=== PATIENT | male | born 1965 | race Caucasian/White ===

== ENCOUNTER 2025-03-09 14:37 | Outpatient (AMB) | payer OTHER, SELFPAY ==
--- OUTSIDE RECORDS SUMMARY | 2023-10-19 16:55 | XMS_ITS | Encounter Summary ---
Author Organization [facility] Address [address] [place] [address] Phone Care Team Providers Care Director Of Corporate Sales Name Role Phone Jairo Angeles MD Primary Care Provider + Encounter Details Date Type Department Care Team (Late st Contact Info) Description 10/19/2023 5:55 PM EDT Hospital Encounter [facility] [address] [place] [id number] Orlando Baxter, RN ADVANCED [address] [place] [address] [email or web address] Social History Tobacco Use Types Packs/Day Years Used Date Smoking Tobacco: Never Smokeless Tobacco: Never Alcohol Use Standard Drinks/Week Comments Yes 1 (1 standard drink = 0.6 oz pur e alcohol) Education Answer Date Recorded Are you interested in more education? Not on carlotta e 08/11/2022 Are you concerned about learning? Not on file 08/11/2022 No 08/11/2022 No 08/11/2022 Food Answer Date Recorded Within the past 6 months we worried whether our food would run out before we got money to buy more. Never True 02/18/2024 Within the past 6 months the food we bought just didn't last and we didn't have enough money to get more. Never True Residential Stability Answer Date Recor ded What is your housing situation today? I have donavon núñez 02/18/2024 How many times have you move d in the past 12 months? Zero (I did not move) 02/18/2024 Paying for Meds Answer Date Recorded Do you have trouble paying for medicines? No 02/18/2024 Paying Utility Bills Answer Date Record ed Do you have trouble paying your heating or elect ricity bill? No 02/18/2024 Transportation Answer Date Recorded Has the lack of transportati on kept you from medical appointments or from getting medications? No 02/18/2024 Digital Access Answer Date Recorded No 02/18/2024 Yes 02/18/2024 Do you have reliable internet access at home? Ye s 02/18/2024 Do you have a device (e.g., phone, tablet, computer) with a working camera? Yes 02/18/2024 Intimate Partner Violence Answer Date R ecorded Are you denied basic needs s uch as food, clothing, or medical care? No 02/18/2024 In the past 12 months have y ou been in a relationship with a person who hurts, threatens, or tries to control you? No 02/18/2024 Are you denied basic needs s uch as food, clothing, or medical care? No 02/18/2024 In the past 12 months have y ou been in a relationship with a person who hurts, threatens, or tries to control you? No 02/18/2024 Sex and Gender Information Value Date Recorded Sex Assigned at Male 04/13/2020 3:32 PM EST Legal Sex Male 8:22 AM EDT Gender Identity Male 04/13/2020 3:32 PM EST Sexual Orientation Straight 04/13/2020 3: 32 PM EST documented as of this encounter Functional Status * Calculated C-SSRS Risk Score (Lifetime/Recent) Answer Date of Assessment Author No Risk Indicated 02/18/2024 6:25 PM Dea Delvalle RN * [place] Suicide Severity Rating Scale (Screener/Recent Self-Report) Question Answer Date of Assessment Author 1. Wish to be (Past 1 Month) No 02/18/2024 6:25 PM Dea Finley RN 2. Non-Specific Active Suicidal Thoughts (Past 1 Month) No 02/18/2024 6:25 PM Dea Finley RN 6. Suicidal Behavior (Lifetime) No 02/18/2024 6:25 PM Dea Finley RN documented as of this encounter Plan of Treatment Not on file documented as of this encounter Procedures Procedure Name Priority Date/Time Associated Diagnosis Comments XR FOOT 3 OR MORE VIEWS (RIGHT) Urgent/patient waiting 10/19/2023 6:01 PM EDT Tendinitis of right foot documented in this encounter Results * XR FOOT 3 OR MORE VIEWS (RIGHT) (10/19/2023 6:01 PM EDT) Anatomical Region Laterality Modality Foot Right Computed Radiogr aphy 10/19/2023 6:28 PM EDT Impressions 10/19/2023 6:29 PM EDT No fracture or dislocation. Narrative 10/19/2023 6:29 PM EDT XR FOOT 3 OR MORE VIEWS (RIGHT) Referring clinician's provided indication for this examination in Epic: Pain; New onset of pain with walking and foot. Location is approximately around midline midfoot. No previous history of fractures or injury. No recent trauma to site COMPARISON: None FINDINGS: No displaced fracture. Small dorsal calcaneal enthesophyte. Normal alignment. Mild multifocal degenerative changes. No gross soft tissue swelling. Peripheral arterial disease. Procedure Note Sid Levin MD - 10/19/2023 XR FOOT 3 OR MORE VIEWS (RIGHT) Referring clinician's provided indication for this examination in Epic:Pain; New onset of pain with walking and foot. Location is approximatelyaround midline midfoot. No previous history of fractures or injury. Norecent trauma to site COMPARISON: None FINDINGS: No displaced fracture. Small dorsal calcaneal enthesophyte. Normalalignment. Mild multifocal degenerative changes. No gross soft tissueswelling. Peripheral arterial disease. IMPRESSION: No fracture or dislocation. Orlando Baxter RN ADVANCED IMG XR LOWER EXTREMITY Final Result documented in this encounter Visit Diagnoses Not on filedocumented in this encounter Care Teams Director Of Corporate Sales Relationship Specialty Start Date End Date Jairo Angeles MD [address] [place] [id number] PCP - General Internal Medicine 04/13/20 documented as of this encounter Additional Source Comments The information contained in this document represents components of the legal health record. It is not the complete legal health record.[facility]
[2025-03-09 15:06] VITALS: BP 140/92; PULSE 68; TEMP 36.1; O2SAT 95; BMI 27.9
--- NOTE | 2025-03-09 15:06 | MHC.PC.OV ---
Vital Signs 03/09/25 15:06 Height 5 ft 10 in Weight 194 lb 8 oz BMI 27.9 BP 140/92 H Blood Pressure Location Rt brachial Position Sitting Pulse 68 Pulse Source Pulse Oximeter Temp 97.0 F Temp Source Temporal Artery Scan Pulse Oximetry (%) 95 Oxygen Delivery Method Room Air Intake Visit Reasons: Establish Care/medication Allergies No Known Allergies Allergy (Verified 03/09/25 15:07) Medication List - Last Reconciled 03/09/25 by Ziggy Moreno MD aspirin 81 mg PO DAILY metoprolol succinate ER 25 mg PO DAILY rosuvastatin 40 mg PO DAILY tamsulosin 0.4 mg PO DAILY tirzepatide (Mounjaro) 0.25 mg subcut QWEEK valsartan 320 mg PO DAILY Tobacco use date assessed: 03/09/25 Dental Screening Dental Screen Date: 03/09/25 Did you have a dental visit in the last 12 months?: Yes Did you have a dental problem in the last 6 months where you did not have access to dental care?: No Was dental information given to patient?: Patient has dentist HPI Establish Care/medication HPI Details New Patient? ?? Prior PCP:? Dr Leija Last office visit/CPE:? 10 mos Acute issue(s):?Est Care ?? PMHx:? TIA, HTN, HLD, PreDM, BPH SurgHx:? L4-5 fusion x 3. R Hip replacement. FHx:? Siblings w/ MIs age 55. Mom: Heart attack in 80s. Dad: old age 89. SocHx: Works for [employer]. Nonsmoker, EtOH Infrequent 1 dr 1-x a month. No Drugs HPI Comments History of Present Illness Details Documentation assistance for Ziggy Moreno MD, was provided by Mahad Hernandez,? Inspector Of Dredging on 03/09/2025 at 3:24 PM EST. I, Dr. Moreno, have read, observed, and verified documentation. ?? PFSH Surgical History (Updated 03/09/25 @ 15:25 by Nayely Barragan CMA) History of lumbar laminectomy Hx of colonoscopy (~08/2024) History of right hip replacement Family History (Updated 03/09/25 @ 15:26 by Nayely Barragan CMA) Mother Hypertension Cardiovascular disease Maternal Grandmother Cardiovascular disease Social History (Updated 03/09/25 @ 15:09 by AMADOR Johnson Household Members: Spouse Housing: House Alcohol intake: current Alcohol intake frequency: a few times a month Patient Tobacco Use Status: Never used Tobacco e-Cigarette/Vaping Use: Never Used service: No Current occupational status: employed Current occupation: [employer] Cognitive needs: No Hearing needs: No Vision needs: Yes (Glasses) Questionnaire PHQ-9 Over the last 2 weeks, how often have you been bothered by any of the following problems? 1. Little interest or pleasure in doing things: not at all 2. Feeling down, depressed, or hopeless: not at all 3. Trouble falling or staying asleep, or sleeping too much: not at all 4. Feeling tired or having little energy: not at all 5. Poor appetite or overeating: not at all 6. Feeling bad about yourself - or that you are a failure or have let yourself or your family down: not at all 7. Trouble concentrating on things, such as reading the newspaper or watching television: not at all 8. Moving or speaking so slowly that other people could have noticed. Or the opposite - being so fidgety or restless that you have been moving around a lot more than usual: not at all 9. Thoughts that you would be better off or of hurting yourself in some way: not at all Total score: 0 Source: Developed by Drs. Carlos Alas, Zoe Ruff, Codey Humphrey and colleagues, with an educational cristopher from [employer]. Thrive Questionnaire I am a: Patient What is your living situation today?: I have a steady place to live Within the past 12 months, did the food you bought not last and you didn't have the money to get more?: Never true Within the past 12 months, did you worry whether your food would run out before you got money to buy more?: Never true Do you have trouble paying for medicines?: No Do you have trouble getting transportation to medical appointments?: No Do you have trouble paying your heating and electricity bill?: No Do you have trouble taking care of your child, family member or friend?: No Do you have trouble with day-to-day activities such as bathing, preparing meals, shopping, managing finances, etc.?: No Are you currently unemployed and looking for a job?: No Are you interested in more education?: No Please select the resources that you would like help with: None Currently or been in a relationship where the following occur: No concerns reported THRIVE Score: 0 AUDIT C Alcohol Use Questionnaire (AUDIT-C) 1. How often do you have a drink containing alcohol?: Monthly or less 2. How many drinks containing alcohol do you have on a typical day when you are drinking?: 1 or 2 3. How often do you have six or more drinks on one occasion?: Never Total Score: 1 CARLYN-7 AMB Questionnaire CARLYN-7 Feeling nervous, anxious, or on edge: 0 = Not at all Not being able to stop or control worryin = Not at all Worrying too much about different things: 0 = Not at all Trouble relaxin = Not at all Being so restless that it is hard to sit still: 0 = Not at all Becoming easily annoyed or irritable: 0 = Not at all Feeling afraid as if something awful might happen: 0 = Not at all Total CARLYN-7 score (0-4 normal; 5-9 mild; 10-14 moderate; 15-21 severe): 0 Source: Developed by Drs. Carlos Alas, Zoe Ruff, Codey Humphrey and colleagues, with an educational cristopher from [employer]. Review of Systems Const Denies chills, Denies fatigue, Denies fever(s), Denies headache(s) and Denies weakness ENT Denies dizziness and Denies headache(s) Card Denies chest pain, Denies lightheadedness, Denies dyspnea and Denies other (Palpitations) Resp Denies cough, Denies dyspnea, Denies wheezing and Denies other ( shortness of breath) Musc Denies numbness and Denies tingling Neuro Denies dizziness, Denies headache(s), Denies numbness, Denies tingling, Denies paresthesias and Denies weakness Psych Denies anxiety and Denies depression Endo Denies fatigue Aller/Immun Denies wheezing Physical exam (Primary Care) Vital Signs: Last Vital Signs Temp 97.0 F 03/09/25 15:06 Pulse 68 03/09/25 15:06 BP 140/92 H 03/09/25 15:06 Pulse Ox 95 03/09/25 15:06 Oxygen Delivery Method Room Air 03/09/25 15:06 BMI result Body Mass Index 27.9 Tobacco/Smoking Status: Tobacco use Status Tobacco use date assessed 03/09/25 03/09/25 15:08 Patient Tobacco Use Status Never used Tobacco 03/09/25 15:09 e-Cigarette/Vaping Use Never Used 03/09/25 15:08 PHQ-9: PHQ-9 Score PHQ-9: Total score 0 03/09/25 15:20 Currently or been in a relationship where the following occur: No concerns reported Const General: no acute distress and well developed Nutritional Appearance: well nourished Orientation/consciousness: patient oriented x3 HENMT Head: Yes normocephalic and Yes atraumatic Eyes General: appearance normal, both eyes and all related structures Pupils: Equal, round and reactive pupils present EOM: EOMs intact bilaterally Resp Effort & Inspection: normal respiratory effort Auscultation: clear to auscultation bilaterally Cardio Rate: regular rate Rhythm: regular rhythm Heart sounds: S1 normal heart sound present, S2 normal heart sound present, no gallops, no murmurs and no rubs Neuro General: patient oriented x3 and gait normal Cranial nerves: Yes Equal, round and reactive pupils present Psych Affect: normal affect Coding Level of Care Code New Pt Level 3 (86160) Diagnoses Hypertension I10 Hyperlipidemia E78.5 History of TIA (transient ischemic attack) Z86.73 BPH (benign prostatic hyperplasia) N40.0 Pre-diabetes R73.03 Laboratory exam ordered as part of routine general medical examination Z00.00 Assessment & Plan Assessment & Plan (1) Hypertension: Code(s): I10 - Essential (primary) hypertension Category: Medical Plan: Patient is on metoprolol and valsartan. Blood pressure mildly elevated today. Goal is less than 130/80 Continue current medications. Check blood pressures and let me know if they are running high at home If still elevated at next visit, will adjust medications Watch salt and sodium (2) Hyperlipidemia: Code(s): E78.5 - Hyperlipidemia, unspecified Category: Medical Plan: Patient is on rosuvastatin 40 mg daily and has a strong family history of [place] Rosuvastatin was recently started. Will request most recent set of labs. He will get labs recheck prior to next visit for comparison (3) History of TIA (transient ischemic attack): Code(s): Z86.73 - Personal history of transient ischemic attack (TIA), and cerebral infarction without residual deficits Category: Medical Plan: Blood pressure, lipids and blood sugar He is on rosuvastatin and aspirin Stable (4) BPH (benign prostatic hyperplasia): Code(s): N40.0 - Benign prostatic hyperplasia without lower urinary tract symptoms Category: Medical Plan: Followed by urology and he is on tamsulosin Stable Will check PSA level (5) Pre-diabetes: Code(s): R73.03 - Prediabetes Category: Medical Plan: Patient notes history of pre diabetes. He is on Mounjaro Has also losing weight on this Continue current medication (6) Laboratory exam ordered as part of routine general medical examination: Code(s): Z00.00 - Encounter for general adult medical examination without abnormal findings Category: Medical Plan: 60-year-old male presents as new patient. Check labs Orders: Orders Prostate Specific Antigen Scr Today Z12.5 - Encounter for screening for malignant neoplasm of prostate Lipid Panel Today Z00.00 - Encounter for general adult medical examination without abnormal findings Comprehensive [place]. Panel Fast Today Z00.00 - Encounter for general adult medical examination without abnormal findings Complete Blood Count Auto Diff Today Z00.00 - Encounter for general adult medical examination without abnormal findings Microalbumin, Random (w Creat) Today I10 - Essential (primary) hypertension UA CC w/rflx Micro + Cult Today Z00.00 - Encounter for general adult medical examination without abnormal findings TSH reflex Free T4 Today Z00.00 - Encounter for general adult medical examination without abnormal findings Hemoglobin A1c Today R73.01 - Impaired fasting glucose
--- OUTSIDE RECORDS SUMMARY | 2025-03-09 19:30 | XMS_ITS | Clinical Summary ---
Author Organization [facility] Address [address] [place] [address] Phone Care Team Providers Care Real Estate Marketing Coordinator Name Role Phone Jairo Angeles MD Primary Care Provider + Allergies Active Allergy Reactions Criticality Noted Date Comments Bee Pollen Swelling 01/06/2021 bees Medications tamsulosin (FLOMAX) 0.4 mg Cap Take 0.4 mg by mouth nightly at bedtime. 1 Active losartan (COZAAR) 100 MG tablet Take 100 mg by mouth daily. Active rosuvastatin (CRESTOR) 40 MG tablet Take 40 mg by mouth daily. 3 Active amLODIPine (NORVASC) 2.5 MG tablet Take 2.5 mg by mouth daily. Active ZEPBOUND 10 mg/0.5 mL subcutaneous pen Inject 10 mg under the skin once a week. 4 Active sildenafiL (VIAGRA) 100 mg tablet Take 50 mg by mouth as needed. 4 Active aspirin 81 MG EC tablet Take 1 tablet (81 mg total) by mouth daily. 4 Active acetaminophen (TYLENOL) 325 mg tablet Take 2 tablets (650 mg total) by mouth every 6 (six) hours as needed. 4 Active diazePAM (VALIUM) 5 MG tablet Take 0.5-1 tablets (2.5-5 mg total) by mouth every 8 (eight) hours as needed (muscle spasms). 10 tablet 4 Active polyethylene glycol (MIRALAX) 17 gram packet Take 17 g by mouth daily as needed for other (free text field) (severe constipation). 14 packet 4 Active oxyCODONE 5 MG immediate release tablet Take 1-2 tablets (5-10 mg total) by mouth every 4 (four) hours as needed (acute severe postsurgical pain). 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 None, Lumbar Spine MRI reviewed, T12 with ribs, 5 lumbarized vertebrae Allergies that may influence a procedure: None Medications that may influence a procedure: None PMHx and PSHx that may influence a procedure: @@@Hypertension (BP>210/110 results in cancelled case) ASA 2 - Patient with mild systemic disease with no functional limitations DIAGNOSTIC TESTING LABS: IMAGIN10/07/2019 - Lumbar Spine MRI - Images independently interpreted, agree with report. Salient report findings: Minimal degenerative anterolisthesis of L4 on L5. Minimal retrolisthesis of L1 on L2 and L2 on L3. The lumbar vertebral bodies are normal in height. No spondylolysis or marrow edema. The lumbar discs are desiccated. Mild multilevel loss of disc space height. Marginal osteophytes and facet arthrosis are noted. Mild congenital narrowing of the spinal canal due to shortened pedicles. The conus terminates at T12-L1. Mild fatty atrophy of the lower posterior paraspinal musculature. The visualized retroperitoneal structures are unremarkable. L1-L2: Mild concentric disc-osteophyte complex and facet arthrosis. Minimal central canal narrowing. Subtle right subarticular recess narrowing with minimal crowding of the traversing right L2 nerve roots. Mild foraminal narrowing. L2-L3: Facet arthrosis and mild Mild central canal narrowing without traversing nerve root impingement. Mild foraminal narrowing. L3-L4: Posterior disc-osteophyte complex, facet arthrosis, and ligamentum flavum infolding. Minimal central canal narrowing without traversing nerve root impingement. Mild right and mild-moderate left foraminal narrowing. L4-L5: Mild concentric disc-osteophyte complex, facet arthrosis, and ligamentum flavum infolding. Severe central canal stenosis. Bilateral subarticular recess narrowing with crowding of and compression of the traversing L5 nerve roots. Mild right and mild-moderate left foraminal narrowing. L5-S1: Mild concentric disc bulge. Subtle subarticular recess narrowing without traversing nerve root impingement. Mild right and minimal left foraminal narrowing. PRIOR TREATMENTS Physical Therapy: last in 2009 Medications tried: Ibuprofen-used to help, oral steroids-has helped in the past Procedures: Dr Valdes - [facility] 08/04/2014 TFESI RT L4, 5: 100% relief x one week. 10/02/2014 TFESI L4, 5: 80% relief for a few days 10/28/2014 TFESI RT L4, 5 - lateral flow noted Ramon 09/01/20 - Right L5-S1 ILESI - excellent medial and superior right dominant epidural flow - 95% relief at 3.5 week follow up 12/29/20 - Right L5-S1 ILESI - good superior (just below L4-5 disc level) and inferior flow, right dominant IMPRESSIONS & RECOMMENDATIONS Bilateral lower back pain with right greater than left posterior thigh, posterior calf, foot numbness. Especially worse with standing and walking, also provoked with prolonged sitting/driving. Suspect symptoms are likely due to severe central stenosis at the L4-5 level. Differentials for axial lower back pain include severe bilateral lumbar zygapophyseal joint arthropathy at the L4-5 and L5-S1 levels. - Discussed the pathophysiology, natural history and spectrum of treatment options. We reviewed differences in technique for interventional spine procedures. We reviewed the difference between a transforaminal epidural steroid injection as well as an interlaminar epidural steroid injection. - Reviewed the importance of regular physical activity and maintenance of ideal body weight in the management of spine pain. - Discussed red flag symptoms to watch out for including progressive weakness of the legs, loss of control of bowel or bladder function, and perirectal/saddle anesthesia. If any of these symptoms occur, the patient is to call the office. If unable to reach us, the patient is to go to the nearest emergency room. - We reviewed imaging together with Zoom teleconferencing via the screen sharing function to demonstrate likely locations of pain generators. We reviewed basic spine anatomy and biomechanics. - We discussed that spine injections can help to decrease pain and/or inflammation, but they do not change the physical structure of the spine. - We discussed the risks of spinal injections including bleeding, infection, increased pain, dysesthesias, nerve damage, paralysis, seizures, stroke and . We reviewed mitigating factors including usage of fluoroscopy, contrast, and having patients alert and awake to give us any feedback on increased discomfort. Patient understood these risks and I answered all questions. - All questions were answered. - Lumbar Spine MRI - completed and reviewed - Prior lumbar spine procedure notes and images reviewed - Patient was given a set of home exercises to try for lumbar spinal stenosis, he will continue with his home exercise program If lower back and leg symptoms return, recommend the following: - right L5-S1 interlaminar epidural steroid injection x1; follow up 2-4 weeks. To be performed at: [facility] [place] with Local Anesthetic If fails to progress, - Spine surgery consultation for open surgical procedure if surgical lesion identified - Pain medicine consultation if non-operative care chosen Raman diagnostic test images: TIA (transient ischemic attack) Overview (12/30/2020): possible TIA in 2008 with blurry vision; negative brain scans; no recurrent symptoms Peripheral edema Overview (12/30/2020): left ankle, chronic, unchanged, wears compression stocking Motion sickness Lumbar stenosis Loud snoring Overview (12/30/2020): with witnessed apnea by , no formal sleep study Hypertension Overview (12/30/2020): controlled on irbesartan Gastroesophageal reflux disease Overview (12/30/2020): well controlled on omeprazole BPH (benign prostatic hyperplasia) At risk for sleep apnea Overview (12/30/2020): loud snoring with witnessed apnea by Arthritis of right hip Immunizations Immunization Administration Dates Next Due INFLUENZA, SPLIT VIRUS, TRIVALENT PF 02/19/2024 Influenza Quadrivalent Prese rvative Free IM 02/03/2022,01/07/2021(Deferred: Patient Refused) Family History Medical History Relation Comments Heart attack Brother 1 age 40s Heart disease Brother 1 Heart attack Brother 2 late 50's Heart disease Brother 2 Lung cancer Father Heart attack Maternal Uncle Heart attack Mother Heart disease Mother Anesthesia problems Neg Hx Diabetes Neg Hx Malig Hyperthermia Neg Hx Pseudochol deficiency Neg Hx Stroke Neg Hx Relation Status Comments Brother 1 Brother 2 Father Maternal Uncle [place] Mother (Age 89) [place] Social History Tobacco Use Types Packs/Day Years Used Date Smoking Tobacco: Never Smokeless Tobacco: Never Tobacco Cessation:Counseling Given: Not Answered Alcohol Use Standard Drinks/Week Comments Yes 1 [...] Orientation Straight 04/13/2020 3: 32 PM EST Last Filed Vital Signs Vital Sign Reading Time Taken Comments Blood Pressure 128/72 08/11/2024 11:15 AM EDT Pulse 89 08/11/2024 11:15 AM EDT Temperature 36.7 C (98 F) 03/19/2024 10:28 AM EST Respiratory Rate 16 02/19/2024 7:36 AM EST Oxygen Saturation 99% 08/11/2024 11:15 AM EDT Inhaled Oxygen Concentration - - Weight 88.6 kg (195 lb 4.8 oz) 08/11/2024 11:15 AM EDT Height 177.8 cm (5' 10 ) 03/19/2024 10:28 AM EST Body Mass Index 28.02 03/19/2024 10:28 AM EST Plan of Treatment Health Maintenance Due Date Last Done Comments Adult Td,Tdap Booster 1964 DEPRESSION SCREENING 1976 HEPATITIS C SCREENING 02/09/1982 HIV ONE-TIME SCREENING (18-65 YEARS) 02/09/1982 COLOGUARD 02/09/2009 COLONOSCOPY 02/09/2009 COLORECTAL CANCER SCREENING 02/09/2009 FIT TEST 02/09/2009 FOBT 02/09/2009 SIGMOIDOSCOPY 02/09/2009 VIRTUAL COLONOSCOPY 02/09/2009 PNEUMOCOCCAL VACCINES (50+ years) (1 of 1 - PCV) 02/09/2014 ZOSTER VACCINES (2 of 2) 08/19/2022 06/24/2022 INFLUENZA VACCINE (#1) 2024 , 02/03/2022, 01/27/2021 COVID-19 VACCINE (2024- season) 2024 04/01/2021, 05/28/2020, 04/30/2020 BLOOD PRESSURE 2025 08/11/2024 CREATININE LEVEL 02/18/2025 02/19/2024, 07/2023, 02/13/2024, Additional history exists POTASSIUM LEVEL 02/18/2025 02/19/2024, 07/2023, 02/13/2024, Additional history exists SCREENING FOR DIABETES 02/18/2027 02/19/2024 RSV VACCINE (1 - 1-dose 75+ series) 02/09/2039 SMOKING STATUS SCREENING (Once After 26 Yrs) Completed 08/11/2024 HEPATITIS A VACCINES Aged Out No long er eligible based on patient's age to complete this topic HIB VACCINES Aged Out No longer eligi ble based on patient's age to complete this topic MENINGOCOCCAL VACCINES (ACWY) Aged Out No longer eligible based on patient's age to complete this topic MENINGOCOCCAL VACCINES (B) Aged Out N o longer eligible based on patient's age to complete this topic Medical Devices Implanted Type Area Sheet Sorter Device Identifier Shelf Expiration Date Model / Serial / Lot Hip Head 36mm Plus 1.5 Femoral Articul/Manuel [place] [employer] 03/29 Tapered - [id number] Implanted:Qty: 1 on 01/06/2021 by Jose Ramon Correa MBChB at [facility] Right: Hip [facility] [employer] 10/13/2025 [id number] / / [id number] Plug Hip 48 66mm Implant Liner Hole Eliminator Thrded Positive Stop [place] 16b - [id number] Implanted:Qty: 1 on 01/06/2021 by Jose Ramon Correa MBChB at [facility] Right: Hip [facility] [employer] 10/13/2030 [id number] / / [id number] Acetabular Liner 36x56 Plus 4mm 10deg Lipped Polyethelene Bearing Altrx Implant 10 - [id number] Implanted:Qty: 1 on 01/06/2021 by Jose Ramon Correa MBC at [facility] STANDARD Right: Hip [facility] [employer] 06/13/2025 [id number] / / [id number] Hip Stem 140mm Sz 14 Femoral Corail Hydroxyapatite High Offset Lateralised - [id number] Implanted:Qty: 1 on 01/06/2021 by Jose Ramon Correa MBChB at [facility] STANDARD Right: Hip [facility] [employer] 07/15/2023 [id number] / / [id number] Dental Implant Acetabular Augment 10x54 56mm Gription Tf Revision Titanium Truebond Locking Slot 21 - [id number] Implanted:Qty: 1 on 01/06/2021 by Jose Ramon Correa MBChB at [facility] Right: Hip [facility] [employer] 11/13/2030 [id number] / / [id number] Allograft Bone 5cc Osteoamp Select Flowable - [id number] Implanted:Qty: 1 on 01/31/2022 by Moshe Marlow MD at [facility] N/A: Spine Lumbar [employer] 09/22/2024 OAMI- [id number] / Tlif Hive-T Interbody Spacer 10w, 30l, 11h Implanted:Qty: 1 on 01/31/2022 by Moshe Marlow MD at [facility] N/A: Spine Lumbar 05/01/2023 [id number] / / [id number] Screw Spine 7x40mm Reline O 2s Polyaxial - [id number] Implanted:Qty: 2 on 01/31/2022 by Moshe Marlow MD at [facility] N/A: Spine Lumbar [employer] [id number] / / Screw Spine 5.5mm Reline Locking - [id number] Implanted:Qty: 4 on 01/31/2022 by Moshe Marlow MD at [facility] N/A: Spine Lumbar [employer] [id number] / / Spine Shahid 35x5.5mm Reline Titanium Lordotic - [id number] Implanted:Qty: 1 on 01/31/2022 by Moshe Marlow MD at [facility] N/A: Spine Lumbar [employer] [id number] / / Screw Spine 7x45mm Reline O 2s Polyaxial - [id number] Implanted:Qty: 2 on 01/31/2022 by Moshe Marlow MD at [facility] N/A: Spine Lumbar [employer] [id number] / / Procedures Procedure Name Priority Date/Time Associated Diagnosis Comments BASIC METABOLIC PANEL (BMP) Routine 02/19/2024 7:56 AM EST from Last 3 Months or Most Recently Relevant to Health Maintenance Results * Basic metabolic panel (02/19/2024 7:56 AM EST) SODIUM 141 136 - 145 mmol/L [facility] POTASSIUM 3.5 3.4 - 5.1 mmol/L [facility] CHLORIDE 103 98 - 107 mmol/L [facility] CO2 25 22 - 31 mmol/L [facility] BUN 15 6 - 23 mg/dL [facility] CREATININE 0.96 0.50 - 1.20 mg/dL [facility] GLUCOSE 99 70 - 100 mg/dL [facility] CALCIUM 9.2 8.8 - 10.7 mg/dL [facility] EGFR 90 >59 mL/min/1.7 3m2 [facility] Comment:Estimated glomerular filtration rate calculated using the CKD-EPI refit equation. ANION GAP 13 7 - 17 mmol/L [facility] Blood 02/19/2024 7:56 AM EST 02/19/2024 9:13 AM EST us Ben Barrios MD LAB BLOOD BKR ORDERABLES Final Result [facility] [address] [place] [id number] from Last 3 Months or Most Recently Relevant to Health Maintenance Insurance [employer] PLUS PPO [employer] PLUS PPO [employer] PLUS PPO [employer] PLUS PPO Advance Directives For more information, please contact: [phone] (9AM - 5PM [facility], Sunday-Sunday) Documents on File Type Date Recorded Patient Valve Tester Expl anation Healthcare Proxy 02/21/2024 6:00 PM * Full Code (Latest Code Status on File) Date Activated Date Inactivated Comments 02/18/2024 5:08 PM Question Answer Comments Code Status Confirmed With: Patient Code Status Communicated To: Sub-specialist (merrill reichfy below) * Full Code Date Activated Date Inactivated Comments 01/06/2021 2:39 PM 02/18/2024 5:08 PM Question Answer Comments Code Status Confirmed With: Patient Care Teams Real Estate Marketing Coordinator Relationship Specialty Start Date End Date Jairo Angeles MD [address] [place] [id number] PCP - General Internal Medicine 04/13/20 Additional Source Comments The information contained in this document represents components of the legal health record. It is not the complete legal health record.[facility]
--- OUTSIDE RECORDS SUMMARY | 2025-03-09 19:30 | XMS_ITS | Encounter Summary ---
Author Organization [employer] [facility] Address [address] [place] [address] Phone Care Team Providers Care Chapter Relations Administrator Name Role Phone Jairo Angeles MD Primary Care Provider + Encounter Details Date Type Department Care Team ([facility] st Contact Info) Description 06/13/2021 Procedure Pass [facility] [address] [place] [address] Social History Tobacco Use Types Packs/Day Years Used Date Smoking Tobacco: Never Smokeless Tobacco: Never Alcohol Use Standard Drinks/Week Comments Yes 1 (1 standard drink = 0.6 oz pur e alcohol) Sex and Gender Information Value Date Recorded Sex Assigned at Male 04/13/2020 3:32 PM EST Legal Sex Male 8:22 AM EDT Gender Identity Male 04/13/2020 3:32 PM EST Sexual Orientation Straight 04/13/2020 3: 32 PM EST documented as of this encounter Plan of Treatment Not on file documented as of this encounter Visit Diagnoses Not on filedocumented in this encounter Care Teams Chapter Relations Administrator Relationship Specialty Start Date End Date Jairo Angeles MD [address] [place] [id number] PCP - General Internal Medicine 04/13/20 documented as of this encounter Additional Source Comments The information contained in this document represents components of the legal health record. It is not the complete legal health record.[facility]
--- OUTSIDE RECORDS SUMMARY | 2025-03-09 19:30 | XMS_ITS | Clinical Summary ---
Author Organization [facility] Address [address] [place] [address] Phone Care Team Providers Care Food Beverage Supervisor Name Role Phone Jairo Angeles MD Primary Care Provider [phone] Allergies Active Allergy Reactions Criticality Noted Date Comments Bee Venom Protein (Honey Bee) 2024 Medications Zepbound 5 mg/0.5 mL injection ADMINISTER 5 MG UNDER THE SKIN EVERY WEEK. ROTATE INJECTION SITES 5 Active rosuvastatin (CRESTOR) 40 mg tablet Take 1 tablet (40 mg total) by mouth 1 (one) time each day. Active losartan (COZAAR) 100 mg tablet TAKE 1 TABLET BY MOUTH DAILY. REPLACES IRBESARTAN Active aspirin 81 mg capsule Take 81 mg by mouth. 4 Active amLODIPine (NORVASC) 2.5 mg tablet Take 1 tablet (2.5 mg total) by mouth 1 (one) time each day. Active polyethylene glycol (Golytely) 236-22.74-6.74 -5.86 gram solution Take 4L by mouth once for one dose. May substitue any PEG. Starting at 6PM the night before your procedure drink 1 8oz glasses at your own pace until you complete half of the gallon. Finish 2nd half of the gallon 5 hours before your procedure. 4000 mL 5 Active bisacodyL (DULCOLAX) 5 mg EC tablet Take 2 tablets by mouth right before beginning bowel prep. See instructions provided by the office 2 tablet 5 Active omeprazole (PriLOSEC) [address] capsuleIndicati ons:Gastroesoph ageal reflux disease without esophagitis,Bar rett's esophagus without dysplasia Take 1 capsule (20 mg total) by mouth 2 (two) times a day. Do not crush or chew. 60 each 11 5 08/22/19 26 Active Active Problems Problem Noted Date Diagnosed Date Anemia 07/17/2024 Assessment & Plan (07/17/2024 5:58 PM EDT): Unspecified anemia, will reorder labs to further evaluate. Recommend add-on EGD for GI workup especially given epigastric pain and heartburn. Orders: Iron and TIBC; Future Ferritin; Future CBC and differential; Future Vitamin B12 and folate; Future Coronary artery calcification 07/17/2024 Hypercholesterolemia 07/17/2024 Hypertension 07/17/2024 Overview (07/17/2024): controlled on irbesartan Osteoarthritis of hip 07/17/2024 PAD (peripheral artery disease) ([facility] V24) TIA (transient ischemic attack) 07/17/2024 Overview (07/17/2024): possible TIA in 2008 with blurry vision; negative brain scans; no recurrent symptoms Varicose veins of legs 07/17/2024 Lumbar stenosis 06/13/2021 S/P hip replacement, right 01/06/2021 Surgical History Surgery Date Site/Laterality Comments BACK SURGERY HERNIA REPAIR TOTAL HIP ARTHROPLASTY COLONOSCOPY at 49 per patient, unremarkable Medical History Medical History Date Comments Hyperlipidemia Hypertension GERD (gastroesophageal reflux disease) Family History Medical History Relation Name Comments Colon cancer Neg Hx Social History Tobacco Use Types Packs/Day Years Used Date Smoking Tobacco: Never Smokeless Tobacco: Never Tobacco Cessation:Counseling Given: Not Answered Alcohol Use Standard Drinks/Week Comments Not Currently 0 (1 standard drink = 0.6 oz pur e alcohol) Interpersonal Safety Answer Date Record ed Physical Abuse Unrecognized value 08/20/2024 Verbal Abuse Unrecognized value 08/20/2024 Sex and Gender Information Value Date Recorded Sex Assigned at Not on file Legal Sex Male 8:44 AM EDT Gender Identity Not on file Sexual Orientation Not on file Obstetrics History Last Filed Vital Signs Vital Sign Reading Time Taken Comments Blood Pressure 114/78 08/20/2024 2:04 PM EDT Pulse 77 08/20/2024 2:04 PM EDT Temperature 36.2 C (97.2 F) 08/20/2024 1:44 PM EDT Respiratory Rate 18 08/20/2024 2:04 PM EDT Oxygen Saturation 98% 08/20/2024 2:04 PM EDT Inhaled Oxygen Concentration - - Weight 83.9 kg (185 lb) 08/20/2024 12:35 PM EDT Height 180.3 cm (5' 11 ) 08/20/2024 12:35 PM EDT Body Mass Index 25.8 08/20/2024 12:35 PM EDT Plan of Treatment Health Maintenance Due Date Last Done Comments DTaP,Tdap,and Td Vaccines (1 - Tdap) 02/09/1983 Pneumococcal Vaccine: 50+ Years (1 of 1 - PCV) 02/09/2014 Zoster Vaccines (2 of 2) 08/19/2022 06/24/2022 Depression Screening 04/16/2024 HIV Screening 06/23/2024 Hepatitis C Screening 06/23/2024 Social Influencers of Health Screening 06/23/2024 Hypertension/CHF/CAD Annual BMP Blood Test 07/16/2024 07/17/2022 COVID-19 Vaccine (4 - 2024-2 6 season) 2024 04/01/2021, 05/28/2020, 04/30/2020 Influenza Vaccine (#1) 2024 , 02/03/2022, 01/27/2021 Cholesterol Screening (Lipid Panel) 08/11/2029 08/11/2024, 07/17/2022 Colorectal Cancer Screening: Colonoscopy 08/20/2034 08/20/2024 RSV Immunization Adult Patients (1 - 1-dose 75+ series) 02/09/2039 HIB Vaccines Aged Out No longer eligi ble based on patient's age to complete this topic HPV Vaccines Aged Out No longer eligi ble based on patient's age to complete this topic Hepatitis A Vaccines Aged Out No long er eligible based on patient's age to complete this topic Hepatitis B Vaccines Aged Out No long er eligible based on patient's age to complete this topic IPV Vaccines Aged Out No longer eligi ble based on patient's age to complete this topic MMR Vaccines Aged Out No longer eligi ble based on patient's age to complete this topic Meningococcal ACWY Vaccine Aged Out N o longer eligible based on patient's age to complete this topic Meningococcal B Vaccine Aged Out No l onger eligible based on patient's age to complete this topic RSV Immunization Patients Under 20 months Aged Out No longer eligible b ased on patient's age to complete this topic Varicella Vaccines Aged Out No longer eligible based on patient's age to complete this topic Procedures Procedure Name Priority Date/Time Associated Diagnosis Comments COLONOSCOPY Routine 08/20/2024 1:43 PM EDT Rectal bleeding Gastroesophageal reflux disease without esophagitis Epigastric pain Anemia, unspecified type from Last 3 Months or Most Recently Relevant to Health Maintenance Results * COLONOSCOPY Anesthesia - MAC; [facility] ENDOSCOPY (08/20/2024 1:43 PM EDT) Anatomical Region Laterality Modality Other 08/20/2024 12:3 7 PM EDT Impressions 08/20/2024 1:35 PM EDT - Diverticulosis in the sigmoid colon and in the ascending colon. - A single non-bleeding colonic angioectasia. - Internal hemorrhoids. - The examination was otherwise normal on direct and retroflexion views. - No specimens collected. Recommendation: - Repeat colonoscopy in 10 years for screening purposes. Narrative 08/20/2024 1:35 PM EDT [facility] GI Patient Name: Jesse Lindsey Procedure Date: 08/20/2024 12:37 PM Date of : 1965 Age: 59 Room: ROOM 14 Gender: Male Note Status: Finalized Attending MD: Salvador Perry MD, Procedure Date No Time: 08/20/2024 Procedure: Colonoscopy Indications: Hematochezia Providers: Salvador Perry MD Referring MD: Salvador Perry MD Medicines: Propofol per Anesthesia Complications: No immediate complications. Estimated Blood Loss: Estimated blood loss: none. Procedure: Pre-Anesthesia Assessment: - ASA Grade Assessment: II - A patient with mild systemic disease. After I obtained informed consent, the scope was passed under direct vision. Throughout the procedure, the patient's blood pressure, pulse, and oxygen saturations were monitored continuously.The Olympus Colonoscope was introduced through the anus and advanced to the cecum, identified by appendiceal orifice and ileocecal valve. The colonoscopy was performed without difficulty. The patient tolerated the procedure well. The quality of the bowel preparation was good. Findings: The perianal and digital rectal examinations were normal. Multiple diverticula were found in the sigmoid colon and ascending colon. A single small angioectasia without bleeding was found in the cecum. Internal hemorrhoids were found during retroflexion. The hemorrhoids were large. The exam was otherwise without abnormality on direct and retroflexion views. Procedure Code(s): --- Professional --- 16714, Colonoscopy, flexible; diagnostic, including collection of specimen(s) by brushing or washing, when performed (separate procedure) Diagnosis Code(s): --- Professional --- K64.8, Other hemorrhoids K55.20, Angiodysplasia of colon without hemorrhage K57.30, Diverticulosis of large intestine without perforation or abscess without bleeding K92.1, Melena (includes Hematochezia) CPT copyright 2020 [employer]. All rights reserved. The codes documented in this report are preliminary and upon financial analysis consultant review may be revised to meet current compliance requirements. Salvador Perry MD 08/20/2024 1:34:52 PM This report has been signed electronically.Salvador Perry MD Number of Addenda: 0 Note Initiated On: 08/20/2024 12:37 PM Scope In: Scope Out: Endoscopy Department at [facility] - [address] [place] [id number] Procedure Note Salvador Perry MD - 08/20/2024 [facility] Patient Name: Jesse Lindsey Procedure Date: 08/20/2024 12:37 PM Date of : 1965 Age: 59 Room: ROOM 14 Gender: Male Note Status: Finalized Attending MD: Salvador Perry MD, Procedure Date No Time: 08/20/2024 Procedure: Colonoscopy Indications: Hematochezia Providers: Salvador Perry MD Referring MD: Salvador Perry MD Medicines: Propofol per Anesthesia Complications: No immediate complications. Estimated Blood Loss: Estimated blood loss: none. Procedure: Pre-Anesthesia Assessment: - ASA Grade Assessment: II - A patient with mild systemic disease. After I obtained informed consent, the scope was passed under direct vision. Throughout theprocedure, the patient's blood pressure, pulse, and oxygen saturations were monitored continuously.The Olympus Colonoscope was introduced through the anus and advanced to the cecum, identified by appendiceal orifice and ileocecal valve. The colonoscopy was performed without difficulty. The patient tolerated the procedure well. The quality of the bowel preparation was good. Findings: The perianal and digital rectal examinations were normal. Multiple diverticula were found in the sigmoidcolon and ascending colon. A single small angioectasia without bleeding wasfound in the cecum. Internal hemorrhoids were found duringretroflexion. The hemorrhoids were large. The exam was otherwise without abnormality ondirect and retroflexion views. Procedure Code(s): --- Professional --- 84677, Colonoscopy, flexible; diagnostic, including collection of specimen(s) by brushing or washing,when performed (separate procedure) Diagnosis Code(s): --- Professional --- K64.8, Other hemorrhoids K55.20, Angiodysplasia of colon withouthemorrhage K57.30, Diverticulosis of large intestine without perforation or abscess without bleeding K92.1, Melena (includes Hematochezia) CPT copyright 2020 [employer]. All rights reserved. The codes documented in this report are preliminary and upon financial analysis consultant reviewmay be revised to meet current compliance requirements. Salvador Perry MD 08/20/2024 1:34:52 PM This report has been signed electronically.Salvador Perry MD Number of Addenda: 0 Note Initiated On: 08/20/2024 12:37 PM Scope In: Scope Out: Endoscopy Department at [facility] - [address] [place] [phone] IMPRESSION: - Diverticulosis in the sigmoid colon and in the ascending colon. - A single non-bleeding colonic angioectasia. - Internal hemorrhoids. - The examination was otherwise normal on directand retroflexion views. - No specimens collected. Recommendation: - Repeat colonoscopy in 10 years for screening purposes. Salvador Perry MD GI~PROCEDURE ORDERABLES Fin al Result from Last 3 Months or Most Recently Relevant to Health Maintenance Insurance [facility] [place] [id number] Care Teams Food Beverage Supervisor Relationship Specialty Start Date End Date Jairo Angeles MD [address] [place] [address] PCP - General Internal Medicine 06/23/24
--- OUTSIDE RECORDS SUMMARY | 2025-03-09 19:30 | XMS_ITS | Encounter Summary ---
Author Organization [facility] Address [address] [place] [address] Phone Care Team Providers Care Women Nurse Name Role Phone Jairo Angeles MD Primary Care Provider + Reason for Referral * MRI/CAT Scan - Closed Specialty Diagnoses / Procedures Referred By Sebastián kinney Referred To Contact Radiology Diagnoses Pure hypercholesterolemia Angina pectoris Procedures NC Myocardial Perfusion Stress Single NC Myocardial Perfusion Exercise Multiple CHG CT ANGIO HRT CORNRY ART/BYPASS GRFTS CONTRST 3D POST CHG MYOCARDIAL SPECT SINGLE STUDY AT REST OR STRESS CHG MYOCARDIAL SPECT MULTIPLE STUDIES Doyle Serrano MD, PhD Phone: tel: fax: [email or web address] Referral ID Status Reason Start Date Expiration Date Visits Re quested Visits Authorized [id number] Closed 07/17/2022 08/18/2022 1 1 Encounter Details Date Type Department Care Team (Latest Contact Info) Description 08/02/2022 Ancillary Orders [facility] [address] [place] [address] Doyle Serrano MD, PhD [address] [facility] [address] [place], [place] [id number] [email or web address] Pure hypercholesterolemi a; Angina pectoris Social History Tobacco Use Types Packs/Day Years [...] on file documented as of this encounter Results * NC Myocardial Perfusion Stress Single (08/02/2022 10:43 AM EDT) Anatomical Region Laterality Modality Heart Nuclear Medicine 08/02/2022 9:15 AM EDT Narrative 08/02/2022 12:[address] Serrano, Your patient Jesse Lindsey, a 57 year old male with no known CAD was referred to us for an exercise treadmill myocardial perfusion SPECT study to evaluate for dyspnea. His cardiac risk factors include hypertension, dyslipidemia, a family history of ischemic heart disease and obesity. The patient's resting ECG showed normal sinus rhythm. He was on the following medications at the time of testing: Amlodipine, Losartan, Aspirin, Rosuvastatin. Tc-99m Sestamibi Exercise Stress-only SPECT Protocol: Mr. Lindsey underwent a myocardial perfusion SPECT study following the IV administration of 8.3 mCi of Tc-99m Sestamibi at peak stress. Gated myocardial perfusion SPECT images were obtained post stress. Stress imaging was performed on 02-Aug-2022. Mr. Lindsey exercised for 6:00 minutes of a Jae protocol. The heart rate increased from 81 bpm at rest to a peak heart rate of 150 bpm (93% age predicted maximal heart rate), and the blood pressure increased from 124/70 mm Hg at rest to 152/60 mm Hg at peak exercise (RPP: 52239). Exercise was terminated due to fatigue. The symptomatic response to exercise was chest pain, which started 3:17 minutes into the test and resolved 1:00 minutes into recovery. The blood pressure response was normal. The ECG response to exercise indicated no significant ST-T changes. During exercise, PVCs were observed. Mr. Lindsey's functional capacity was 7 METS, which is fair for his age and gender. His heart rate recovery was 21 bpm (normal HRR > 12 bpm). His Martini treadmill score was 2 which places him at an intermediate prognostic risk (between 1% and 5% mortality per year). Intensity Heart Blood RPE Speed (Grade Rate Pressure (Scale (MPH) or Swartz) (bmp) (mm Hg) of 10) BASELINE Supine 81 124/70 Standing 93 96/58 STRESS Stage 1 1.7 10 131 134/60 Stage 2 2.5 12 150 152/60 RECOVERY 1 Minute 129 148/60 3 Minute 96 134/62 5 Minute 94 116/60 Stress-only Myocardial Perfusion Images: Image quality was good. The images demonstrated normal LV size and normal tracer uptake in the lungs. They also demonstrated normal RV size with normal RV tracer uptake. There were no regional perfusion defects seen on the stress images. Semi-quantitative analysis: The scan results demonstrated no evidence of ischemia and/or scar (summed stress score: 0). Reference %Myocardium Scan Results abnormal 0% Normal 1-4% Mildly abnormal 5-9% Moderately abnormal >=10% Severely abnormal Gated SPECT: The images demonstrated a post-stress LV ejection fraction of 68% and ESVI 12 ml/m^2 with normal LV volumes. There was normal regional wall motion and thickening. The RV function appeared normal. Incidental Findings: None. In summary, the test results were: 1. Functional Capacity: 7 METS 2. Peak Heart Rate: 150 bpm (93% age-predicted maximal heart rate). 3. Symptomatic Response: Chest pain. 4. Peak Blood Pressure: 152/60 mm Hg. 5. Blood Pressure Response: Normal. 6. ECG Response: Negative test for myocardial ischemia based on absence of ECG changes. 7. Stress-induced Arrhythmia: PVCs. 8. Myocardial Perfusion: Normal. 9. Global LV Function: Normal. Final impression: 1. The patient's imaging test results are normal and suggest no evidence of flow-limiting CAD. 2. Normal global LV systolic function. Stress ECG tracings available from [facility]'s [employer]. The teaching physician, Dr. Anya Velazquez, has supervised the procedure and performed the interpretation and reporting of the resulting data. Thank you for referring this patient to us. Sincerely yours, Meri Ferrer M.D., Inspector Casing Santhosh Adler M.D., Cardiology Imaging Fellow Anya Velazquez M.D., Attending Physician Procedure Note Anya Velazquez MD, MPH - 08/02/[address] Serrano, Your patient Jesse Lindsey, a 57 year old male with no known CAD wasreferred to us for an exercise treadmill myocardial perfusion SPECT studyto evaluate for dyspnea. His cardiac risk factors include hypertension,dyslipidemia, a family history of ischemic heart disease and obesity. The patient's resting ECG showed normal sinus rhythm. He was on thefollowing medications at the time of testing: Amlodipine, Losartan,Aspirin, Rosuvastatin. Tc-99m Sestamibi Exercise Stress-only SPECT Protocol: Mr. Lindsey underwent a myocardial perfusion SPECT study following theIV administration of 8.3 mCi of Tc-99m Sestamibi at peak stress. Gatedmyocardial perfusion SPECT images were obtained post stress. Stressimaging was performed on 02-Aug-2022. Mr. Lindsey exercised for 6:00 minutes of a Jae protocol. The heartrate increased from 81 bpm at rest to a peak heart rate of 150 bpm (93%age predicted maximal heart rate), and the blood pressure increased axmt068/70 mm Hg at rest to 152/60 mm Hg at peak exercise (RPP: 84471). Exercise was terminated due to fatigue. The symptomatic response toexercise was chest pain, which started 3:17 minutes into the test andresolved 1:00 minutes into recovery. The blood pressure response wasnormal. The ECG response to exercise indicated no significant ST-T changes. During exercise, PVCs wereobserved. Mr. Lindsey's functional capacity was 7 METS, which is fair for his ageand gender. His heart rate recovery was 21 bpm (normal HRR > 12 bpm).His Martini treadmill score was 2 which places him at an intermediateprognostic risk (between 1% and 5% mortality per year). Intensity Heart Blood RPE Speed (Grade Rate Pressure (Scale (MPH) or Swartz) (bmp) (mm Hg) of 10) BASELINE Supine 81 124/70 Standing 93 96/58 STRESS Stage 1 1.7 10 131 134/60 Stage 2 2.5 12 150 152/60 RECOVERY 1 Minute 129 148/60 3 Minute 96 134/62 5 Minute 94 116/60 Stress-only Myocardial Perfusion Images: Image quality was good. The images demonstrated normal LV size and normaltracer uptake in the lungs. They also demonstrated normal RV size withnormal RV tracer uptake. There were no regional perfusion defects seen on the stress images. Semi-quantitative analysis: The scan results demonstrated no evidence of ischemia and/or scar (summedstress score: 0). Reference %Myocardium Scan Results abnormal 0% Normal 1-4% Mildly abnormal 5-9% Moderately abnormal >=10% Severely abnormal Gated SPECT: The images demonstrated a post-stress LV ejection fraction of 68% and ESVI12 ml/m^2 with normal LV volumes. There was normal regional wall motionand thickening. The RV function appeared normal. Incidental Findings: None. In summary, the test results were: 1. Functional Capacity: 7 METS 2. Peak Heart Rate: 150 bpm (93% age-predicted maximal heart rate). 3. Symptomatic Response: Chest pain. 4. Peak Blood Pressure: 152/60 mm Hg. 5. Blood Pressure Response: Normal. 6. ECG Response: Negative test for myocardial ischemia based on absenceof ECG changes. 7. Stress-induced Arrhythmia: PVCs. 8. Myocardial Perfusion: Normal. 9. Global LV Function: Normal. Final impression: 1. The patient's imaging test results are normal and suggest no evidenceof flow-limiting CAD. 2. Normal global LV systolic function. Stress ECG tracings available from [facility]'s [employer]. The teaching physician, Dr. Anya Velazquez, has supervised the procedureand performed the interpretation and reporting of the resulting data. Thank you for referring this patient to us. Sincerely yours, Meri Ferrer M.D., Inspector Casing Santhosh Adler M.D., Cardiology Imaging Fellow Anya Velazquez M.D., Attending Physician us Doyle Serrano MD, PhD CV NM CARDIAC Final Result documented in this encounter Visit Diagnoses Diagnosis Pure hypercholesterolemia Angina pectoris Other and unspecified angina pectoris Pure hypercholesterolemia Angina pectoris Other and unspecified angina pectoris documented in this encounter Care Teams Women Nurse Relationship Specialty Start Date End Date Jairo Angeles MD [address] [place] [id number] PCP - General Internal Medicine 04/13/20 documented as of this encounter Additional Source Comments The information contained in this document represents components of the legal health record. It is not the complete legal health record.[facility]
--- OUTSIDE RECORDS SUMMARY | 2025-03-09 19:30 | XMS_ITS | Encounter Summary ---
Author Organization [facility] Address [address] [place] [address] Phone Care Team Providers Care District Administrative Assistant Name Role Phone Jairo Angeles MD Primary Care Provider + Encounter Details Date Type Department Care Team (Late st Contact Info) Description 02/18/2024 Procedure Pass [facility] Periop [address] [place] [address] Social History Tobacco Use Types Packs/Day Years [...] your housing situation today? I have donavon sing 02/18/2024 How many times have you move [...] 02/18/2024 6:25 PM Dea Delvalle RN * [place] Suicide Severity Rating Scale (Screener/Recent Self-Report) Question [...] on filedocumented in this encounter Care Teams District Administrative Assistant Relationship Specialty Start Date End Date Jairo Angeles MD [address] [place] [id number] PCP - General Internal Medicine 04/13/20 documented as of this encounter Additional Source Comments The information contained in this document represents components of the legal health record. It is not the complete legal health record.[facility]
--- OUTSIDE RECORDS SUMMARY | 2025-03-09 19:30 | XMS_ITS | Encounter Summary ---
Author Organization [facility] Address [address] [place] [address] Phone Care Team Providers Care Heating Unit Mechanic Name Role Phone Jairo Angeles MD Primary Care Provider + Reason for Visit * Reason Comments Medication Refill Encounter Details Date Type Department Care Team (Late st Contact Info) Description 07/16/2021 Refill [facility] Department of Neurosurgery [address] [place] [address] Lo Salter PA-C [address] [place] [address] [email or web address] [email or web address] Refill Social History Tobacco Use Types Packs/Day Years [...] on filedocumented in this encounter Care Teams Heating Unit Mechanic Relationship Specialty Start Date End Date Jairo Angeles MD [address] [place] [id number] PCP - General Internal Medicine 04/13/20 documented as of this encounter Additional Source Comments The information contained in this document represents components of the legal health record. It is not the complete legal health record.[facility]
--- OUTSIDE RECORDS SUMMARY | 2025-03-09 19:30 | XMS_ITS | Encounter Summary ---
Author Organization [facility] Address [address] [place] [address] Phone Care Team Providers Care Crossing Flagman Name Role Phone Jairo Angeles MD Primary Care Provider + Encounter Details Date Type Department Care Team ([facility] Contact Info) Description 07/17/2022 Procedure Pass [facility] Echocardiography [address] [id number] Social History Tobacco Use Types Packs/Day Years [...] on filedocumented in this encounter Care Teams Crossing Flagman Relationship Specialty Start Date End Date Jairo Angeles MD [address] [place] [phone] PCP - General Internal Medicine 04/13/20 documented as of this encounter Additional Source Comments The information contained in this document represents components of the legal health record. It is not the complete legal health record.[facility]
--- OUTSIDE RECORDS SUMMARY | 2025-03-09 19:30 | XMS_ITS | Encounter Summary ---
Author Organization [facility] Address [address] [place] [address] Phone Care Team Providers Care Sql Server Architect Name Role Phone Jairo Angeles MD Primary Care Provider + Encounter Details Date Type Department Care Team (Late st Contact Info) Description 01/31/2022 Procedure Pass [facility] [address] [place] [address] Social History Tobacco Use Types Packs/Day Years [...] Date of Assessment Author No Risk Indicated 01/31/2022 5:20 PM EDT La Nena Lyon RN * [place] Suicide Severity Rating Scale (Screener/Recent Self-Report) Question Answer Date of Assessment Author 1. Wish to be (Past 1 Month) No 022 5:20 PM EDT La Nena Lyon RN 2. Non-Specific Active Suici david Thoughts (Past 1 Month) No 01/31/2022 5:20 PM EDT Marion Lyon RN 6. Suicidal Behavior (Lifetime) No 2 5:20 PM EDT La Nena Lyon RN documented as of this encounter Plan of Treatment Not on file documented as of this encounter Visit Diagnoses Not on filedocumented in this encounter Care Teams Sql Server Architect Relationship Specialty Start Date End Date Jairo Angeles MD [address] [place] [phone] PCP - General Internal Medicine 04/13/20 documented as of this encounter Additional Source Comments The information contained in this document represents components of the legal health record. It is not the complete legal health record.[facility]
--- OUTSIDE RECORDS SUMMARY | 2025-03-09 19:30 | XMS_ITS | Encounter Summary ---
Author Organization [facility] Address [address] [place] [address] Phone Care Team Providers Care Seafood Manager Name Role Phone Jairo Angeles MD Primary Care Provider + Encounter Details Date Type Department Care Team (Late st Contact Info) Description 01/06/2021 Procedure Pass [facility] Periop 6th floor [address] [place] [address] Social History Tobacco Use Types Packs/Day Years [...] Date of Assessment Author No Risk Indicated 01/06/2021 3:17 PM EDT Fatmata Magallanes, DEWAYNE * [place] Suicide Severity Rating Scale (Screener/Recent Self-Report) Question Answer Date of Assessment Author 1. Wish to be (Past 1 Month) No 01/06/2021 3:17 PM EDT Mary Leal RN 2. Non-Specific Active Suici david Thoughts (Past 1 Month) No 01/06/2021 3:17 PM EDT Jalen Leal, DEWAYNE 6. Suicidal Behavior (Lifetime) No 3:17 PM EDT Fatmata Leal, DEWAYNE documented as of this encounter Plan of Treatment Not on file documented as of this encounter Visit Diagnoses Not on filedocumented in this encounter Care Teams Seafood Manager Relationship Specialty Start Date End Date Jairo Angeles MD [address] [place] [address] PCP - General Internal Medicine 04/13/20 documented as of this encounter Additional Source Comments The information contained in this document represents components of the legal health record. It is not the complete legal health record.[facility]
--- OUTSIDE RECORDS SUMMARY | 2025-03-09 19:30 | XMS_ITS | Encounter Summary ---
Author Organization [facility] Address [address] [place] [address] Phone Care Team Providers Care Gunnery/Ordnance Officer Name Role Phone Jairo Angeles MD Primary Care Provider + Encounter Details Date Type Department Care Team (Late st Contact Info) Description 01/31/2022 Procedure Pass [facility] Periop [address] [place] [address] Social History Tobacco Use Types Packs/Day Years [...] PM EDT La Nena Lyon RN * [place] Suicide Severity Rating Scale (Screener/Recent Self-Report) Question Answer Date of Assessment Author 1. Wish to be (Past 1 Month) No 022 5:20 PM EDT La Nena Lyon RN 2. Non-Specific Active Suici david Thoughts (Past 1 Month) No 01/31/2022 5:20 PM EDT Marion Lyon RN 6. Suicidal Behavior (Lifetime) No 5:20 PM EDT La Nena Lyon RN documented as of this encounter Plan of Treatment Not on file documented as of this encounter Visit Diagnoses Not on filedocumented in this encounter Care Teams Gunnery/Ordnance Officer Relationship Specialty Start Date End Date Jairo Angeles MD [address] [place] [address] PCP - General Internal Medicine 04/13/20 documented as of this encounter Additional Source Comments The information contained in this document represents components of the legal health record. It is not the complete legal health record.[facility]
--- OUTSIDE RECORDS SUMMARY | 2025-03-09 19:30 | XMS_ITS | Encounter Summary ---
Author Organization [facility] Address [address] [place] [address] Phone Care Team Providers Care Buyer Grain Name Role Phone Jairo Angeles MD Primary Care Provider + Reason for Visit * Reason Comments Medication Refill Encounter Details Date Type Department Care Team (Late st Contact Info) Description 02/26/2021 Refill [facility] Department of Orthopaedics [address] [place] [address] Karina Estrada PA-C [address] [place] [address] [email or web address] [email or web address] Refill Social History Tobacco Use [...] on filedocumented in this encounter Care Teams Buyer Grain Relationship Specialty Start Date End Date Jairo Angeles MD [address] [place] [address] PCP - General Internal Medicine 04/13/20 documented as of this encounter Additional Source Comments The information contained in this document represents components of the legal health record. It is not the complete legal health record.[facility]
--- OUTSIDE RECORDS SUMMARY | 2025-03-09 19:30 | XMS_ITS | Encounter Summary ---
Author Organization [facility] Address [address] [place] [address] Phone Care Team Providers Care Stamp Pad Maker Name Role Phone Jairo Angeles MD Primary Care Provider + Encounter Details Date Type Department Care Team ([facility] st Contact Info) Description 06/13/2021 Procedure Pass [facility] [address] [place] [address] Social History Tobacco Use Types Packs/Day Years [...] on filedocumented in this encounter Care Teams Stamp Pad Maker Relationship Specialty Start Date End Date Jairo Angeles MD [address] [place] [address] PCP - General Internal Medicine 04/13/20 documented as of this encounter Additional Source Comments The information contained in this document represents components of the legal health record. It is not the complete legal health record.[facility]
--- OUTSIDE RECORDS SUMMARY | 2025-03-09 19:31 | XMS_ITS | Encounter Summary ---
Author Organization [facility] Address [address] [place] [address] Phone Care Team Providers Care Toe Laster Name Role Phone Jairo Angeles MD Primary Care Provider + Encounter Details Date Type Department Care Team (Late st Contact Info) Description 02/18/2024 Ancillary Orders [facility] Department of Neurosurgery at [address] 1st [place] [address] Ben Barrios MD [address] [place] [address] [email or web address] Pain (Primary Dx) Social History Tobacco Use Types Packs/Day Years [...] 02/18/2024 6:25 PM Dea Delvalle RN * [place] Suicide Severity Rating Scale (Screener/Recent Self-Report) Question [...] documented as of this encounter Results * FL FLUOROSCOPY (02/18/2024 2:35 PM EST) Narrative BREANNE - 02/18/2024 2:36 PM EST This imaging order was used as part of an OR case and the order has been auto-finalized. us Ben Barrios MD IM AMIGO Final Result [facility] documented in this encounter Visit Diagnoses Diagnosis Pain- Primary Generalized pain documented in this encounter Care Teams Toe Laster Relationship Specialty Start Date End Date Jairo Angeles MD [address] [place] [phone] PCP - General Internal Medicine 04/13/20 documented as of this encounter Additional Source Comments The information contained in this document represents components of the legal health record. It is not the complete legal health record.[facility]
--- OUTSIDE RECORDS SUMMARY | 2025-03-09 19:31 | XMS_ITS | Encounter Summary ---
Author Organization [facility] Address [address] [place] [address] Phone Care Team Providers Care Welding Machine Operator Electro Gas Name Role Phone Jairo Angeles MD Primary Care Provider + Encounter Details Date Type Department Care Team (Late st Contact Info) Description 02/18/2024 Procedure Pass [facility] Periop [address] [place] [address] Social History Tobacco Use Types Packs/Day Years [...] 02/18/2024 6:25 PM Dea Delvalle RN * [place] Suicide Severity Rating Scale (Screener/Recent Self-Report) Question [...] on filedocumented in this encounter Care Teams Welding Machine Operator Electro Gas Relationship Specialty Start Date End Date Jairo Angeles MD [address] [place] [address] PCP - General Internal Medicine 04/13/20 documented as of this encounter Additional Source Comments The information contained in this document represents components of the legal health record. It is not the complete legal health record.[facility]
--- OUTSIDE RECORDS SUMMARY | 2025-03-09 19:31 | XMS_ITS | Encounter Summary ---
Author Organization [facility] Address [address] [place] [address] Phone Care Team Providers Care Net Maker Name Role Phone Jairo Angeles MD Primary Care Provider + Encounter Details Date Type Department Care Team (Late st Contact Info) Description 12/23/2021 Procedure Pass [facility] - [address] [address] Social History Tobacco Use Types Packs/Day Years [...] on filedocumented in this encounter Care Teams Net Maker Relationship Specialty Start Date End Date Jairo Angeles MD [address] [place] [address] PCP - General Internal Medicine 04/13/20 documented as of this encounter Additional Source Comments The information contained in this document represents components of the legal health record. It is not the complete legal health record.[facility]
--- OUTSIDE RECORDS SUMMARY | 2025-03-09 19:31 | XMS_ITS | Encounter Summary ---
Author Organization [facility] Address [address] [place] [address] Phone Care Team Providers Care Oil Deliverer Name Role Phone Jairo Angeles MD Primary Care Provider + Encounter Details Date Type Department Care Team (Late st Contact Info) Description 02/18/2024 Procedure Pass [facility] [address] [place] [address] Social History Tobacco Use Types Packs/Day Years [...] 02/18/2024 6:25 PM Dea Delvalle RN * [place] Suicide Severity Rating Scale (Screener/Recent Self-Report) Question Answer Date of Assessment Author 1. Wish to be (Past 1 Month) No 02/18/2024 6:25 PM Dea Finley RN 2. Non-Specific Active Suicidal Thoughts (Past 1 Month) No 02/18/2024 6:25 PM Dea Finley RN 6. Suicidal Behavior (Lifetime) No 02/18/2024 6:25 PM Dea Finley, RN documented as of this encounter Plan of Treatment Not on file documented as of this encounter Visit Diagnoses Not on filedocumented in this encounter Care Teams Oil Deliverer Relationship Specialty Start Date End Date Jairo Angeles MD [address] [place] [phone] PCP - General Internal Medicine 04/13/20 documented as of this encounter Additional Source Comments The information contained in this document represents components of the legal health record. It is not the complete legal health record.[facility]
--- OUTSIDE RECORDS SUMMARY | 2025-03-09 19:31 | XMS_ITS | Encounter Summary ---
Author Organization [facility] Address [address] [place] [address] Phone Care Team Providers Care Makeup Instructor Name Role Phone Jairo Angeles MD Primary Care Provider + Reason for Referral * MRI/CAT Scan - Closed Specialty Diagnoses / Procedures Referred By Sebastián kinney Referred To Contact Radiology Diagnoses Coronary artery disease involving [place] coronary artery of walker river heart without angina pectoris Procedures NC Myocardial Perfusion Stress Single NC Myocardial Perfusion Exercise Multiple CHG MYOCARDIAL SPECT MULTIPLE STUDIES RI CARDIAC STRESS TST,TRACING ONLY Doyle Serrano MD, PhD [address] [place] [address] Phone: tel: fax: [email or web address] Referral ID Status Reason Start Date Expiration Date Visits Re quested Visits Authorized [id number] Closed 09/17/2024 10/16/2024 1 1 Encounter Details Date Type Department Care Team (Latest Contact Info) Description 09/30/[address] [facility] [address] [place] [address] Doyle Serrano MD, PhD [address] [place] [address] Coronary artery disease involving walker river coronary artery of walker river heart without angina pectoris (Primary Dx) Social History Tobacco Use Types [...] Results * [place] Myocardial Perfusion Stress Single (09/30/2024 9:13 AM EDT) Anatomical Region Laterality Modality Heart Nuclear Medicine 09/30/2024 7:30 AM EDT Narrative 09/30/2024 12:[address] Serrano, Your patient Jesse Lindsey, a 59 year old male with no known CAD was referred to us for an exercise treadmill myocardial perfusion SPECT study to evaluate for chest pain. He has no cardiac risk factors. The patient's resting ECG showed normal sinus rhythm. He was on the following medications at the time of testing: Amlodipine, Losartan, Aspirin, Rosuvastatin. Tc-99m Sestamibi Exercise Stress-only SPECT Protocol: Mr. Lindsey underwent a myocardial perfusion SPECT study following the IV administration of 5.8 mCi of Tc-99m Sestamibi at peak stress. Gated myocardial perfusion SPECT images were obtained post stress. Stress imaging was performed on 30-Sep-2024. Mr. Lindsey exercised for 9:00 minutes of a Jae protocol. The heart rate increased from 83 bpm at rest to a peak heart rate of 150 bpm (94% age predicted maximal heart rate), and the blood pressure increased from 138/80 mm Hg at rest to 154/82 mm Hg at peak exercise (RPP: 86682). Exercise was terminated due to the patient having achieved the target workload and shoelace came untied. The symptomatic response to exercise was non-ischemic. The blood pressure response was normal. The ECG response to exercise indicated no significant ST-T changes. During exercise, occasional PVC's were observed. Mr. Lindsey's functional capacity was 10.1 METS, which is good for his age and gender. His heart rate recovery was 19 bpm (normal HRR > 12 bpm). His Martini treadmill score was 9 which places him at a low prognostic risk (lower than 1% mortality per year). Intensity Heart Blood RPE Speed (Grade Rate Pressure (Scale (MPH) or Swartz) (bmp) (mm Hg) of 10) BASELINE Supine 83 138/80 Standing 92 126/82 STRESS Stage 1 1.7 10 115 126/78 Stage 2 2.5 12 137 144/80 Stage 3 3.4 14 150 154/82 RECOVERY 1 Minute 131 176/64 3 Minute 111 150/80 5 Minute 104 134/82 Stress-only Myocardial Perfusion Images: Image quality was excellent. The images demonstrated normal LV size and [...] demonstrated a post-stress LV ejection fraction of greater than 70% with normal LV volumes. There was normal regional wall motion and thickening. The RV function appeared normal. Incidental Findings: None. In summary, the test results were: 1. Functional Capacity: 10.1 METS 2. Peak Heart Rate: 150 bpm (94% age-predicted maximal heart rate). 3. Symptomatic Response: Non-ischemic. 4. Peak Blood Pressure: 154/82 mm Hg. 5. Blood Pressure Response: Normal. 6. ECG Response: Negative test for myocardial ischemia based on absence of ECG changes. 7. Stress-induced Arrhythmia: occasional PVC's. 8. Myocardial Perfusion: Normal. 9. Global LV Function: Normal. Final impression: 1. The patient's test results are normal and suggest no evidence of flow-limiting CAD. 2. Normal global LV systolic function. 3. The results are essentially unchanged from his prior study of Aug 02, 2022. Stress ECG tracings available from [facility]'s Advanced ICU Care Web Applications. Thank you for referring this patient to us. Sincerely yours, Con Trinh M.D., Cardiac Imaging Fellow Natalee Gunter M.D., Barber Or Beauty Shop Manager Dea Dutta M.D., Terminal Computer Operator Jefferson Johnson M.D., Attending Physician Procedure Note Jefferson Duran MD, MSc - 09/30/[address] Serrano, Your patient Jesse Lindsey, a 59 year old male with no known CAD wasreferred to us for an exercise treadmill myocardial perfusion SPECT studyto evaluate for chest pain. He has no cardiac risk factors. The patient's resting ECG showed normal sinus rhythm. He was on thefollowing medications at the time of testing: Amlodipine, Losartan,Aspirin, Rosuvastatin. Tc-99m Sestamibi Exercise Stress-only SPECT Protocol: Mr. Lindsey underwent a myocardial perfusion SPECT study following theIV administration of 5.8 mCi of Tc-99m Sestamibi at peak stress. Gatedmyocardial perfusion SPECT images were obtained post stress. Stressimaging was performed on 30-Sep-2024. Mr. Lindsey exercised for 9:00 minutes of a Jae protocol. The heartrate increased from 83 bpm at rest to a peak heart rate of 150 bpm (94%age predicted maximal heart rate), and the blood pressure increased [id number]/80 mm Hg at rest to 154/82 mm Hg at peak exercise (RPP: [id number]). Exercise was terminated due to the patient having achieved the targetworkload and shoelace came untied. The symptomatic response to exercisewas non-ischemic. The blood pressure response was normal. The ECGresponse to exercise indicated no significant ST-T changes. During exercise, occasional PVC's wereobserved. Mr. Lindsey's functional capacity was 10.1 METS, which is good for hisage and gender. His heart rate recovery was 19 bpm (normal HRR > 12 bpm).His Martini treadmill score was 9 which places him at a low prognostic risk(lower than 1% mortality per year). Intensity Heart Blood RPE Speed (Grade Rate Pressure (Scale (MPH) or Swartz) (bmp) (mm Hg) of 10) BASELINE Supine 83 138/80 Standing 92 126/82 STRESS Stage 1 1.7 10 115 126/78 Stage 2 2.5 12 137 144/80 Stage 3 3.4 14 150 154/82 RECOVERY 1 Minute 131 176/64 3 Minute 111 150/80 5 Minute 104 134/82 Stress-only Myocardial Perfusion Images: Image quality was excellent. The images demonstrated normal LV size andnormal tracer uptake in the lungs. They also demonstrated normal RV sizewith normal RV tracer uptake. There were no regional perfusion defects seen on the stress images. Semi-quantitative analysis: The scan results demonstrated no evidence of ischemia and/or scar (summedstress score: 0). Reference %Myocardium Scan Results abnormal 0% Normal 1-4% Mildly abnormal 5-9% Moderately abnormal >=10% Severely abnormal Gated SPECT: The images demonstrated a post-stress LV ejection fraction of greater than70% with normal LV volumes. There was normal regional wall motion andthickening. The RV function appeared normal. Incidental Findings: None. In summary, the test results were: 1. Functional Capacity: 10.1 METS 2. Peak Heart Rate: 150 bpm (94% age-predicted maximal heart rate). 3. Symptomatic Response: Non-ischemic. 4. Peak Blood Pressure: 154/82 mm Hg. 5. Blood Pressure Response: Normal. 6. ECG Response: Negative test for myocardial ischemia based on absenceof ECG changes. 7. Stress-induced Arrhythmia: occasional PVC's. 8. Myocardial Perfusion: Normal. 9. Global LV Function: Normal. Final impression: 1. The patient's test results are normal and suggest no evidence offlow-limiting CAD. 2. Normal global LV systolic function. 3. The results are essentially unchanged from his prior study of Jul. Stress ECG tracings available from [facility]'s Advanced ICU Care Web Applications. Thank you for referring this patient to us. Sincerely yours, Con Trinh M.D., Cardiac Imaging Fellow Natalee Gunter M.D., Barber Or Beauty Shop Manager Dea Dutta M.D., Terminal Computer Operator Jefferson Jonhson M.D., Attending Physician Doyle Serrano MD, PhD CV [place] CARDIAC Final Result documented in this encounter Visit Diagnoses Diagnosis Coronary artery disease involving walk[place] coronary artery of [place] heart without angina pectoris Coronary artery disease involving [place] coronary artery of [place] heart without angina pectoris- Primary documented in this encounter Care Teams Makeup Instructor Relationship Specialty Start Date End Date Jairo Angeles MD [address] [place] [phone] PCP - General Internal Medicine 04/13/20 documented as of this encounter Additional Source Comments The information contained in this document represents components of the legal health record. It is not the complete legal health record.[facility]
--- OUTSIDE RECORDS SUMMARY | 2025-03-09 19:31 | XMS_ITS | Encounter Summary ---
Author Organization [facility] Address [address] [place] [address] Phone Care Team Providers Care Content Development Manager Name Role Phone Jairo Angeles MD Primary Care Provider + Encounter Details Date Type Department Care Team (Late st Contact Info) Description 02/15/[address] [facility] Department of Neurosurgery [address] [place] [address] [email or web address] Social History Tobacco Use Types Packs/Day Years [...] 02/18/2024 6:25 PM Dea Delvalle RN * [place] Suicide Severity Rating Scale (Screener/Recent Self-Report) Question [...] on filedocumented in this encounter Care Teams Content Development Manager Relationship Specialty Start Date End Date Jairo Angeles MD [address] [place] [phone] PCP - General Internal Medicine 04/13/20 documented as of this encounter Additional Source Comments The information contained in this document represents components of the legal health record. It is not the complete legal health record.[facility]
== END 2025-03-09 15:38 | disposition home or self-care (01) ==
LOC: HO.HMCFM 14:38
PROVIDERS: PCP Family Medicine; Visit Provider Family Medicine
DX: I10 Essential (primary) hypertension (principal); E78.5 Hyperlipidemia, unspecified; Z86.73 Personal history of transient ischemic attack (TIA), and cerebral infarction without residual deficits; N40.0 Benign prostatic hyperplasia without lower urinary tract symptoms; R73.03 Prediabetes; Z00.00 Encounter for general adult medical examination without abnormal findings